=== PATIENT | female | born 1990 | race Caucasian/White ===

== ENCOUNTER 2017-06-03 13:25 | Inpatient (IN) | payer OTHER ==
[~2017-06-03] VITALS: Ht 162.6 cm; Wt 88.4 kg
[2017-06-03 13:53] LABS: BASOPHILS % 0.2 % (0.0-2.0); EOSINOPHILS # 0.1 10^3/ul (0.0-0.5); EOSINOPHILS % 0.5 % (0.0-7.0); HEMATOCRIT 36.4 % (37.0-47.0); HEMOGLOBIN 12.1 g/dl (12.0-16.0); LYMPHOCYTES # 1.6 10^3/ul (0.8-2.9); MEAN CORPUSCULAR HEMOGLOBIN 29.5 pg (29.0-33.0); MEAN CORPUSCULAR HGB CONC 33.2 g/dl (32.0-37.0); MEAN CORPUSCULAR VOLUME 88.8 fl (82.0-101.0); MEAN PLATELET VOLUME 10.6 fl (7.4-10.4); MONOCYTE # 0.8 10^3/ul (0.3-0.9); MONOCYTES % 7.3 % (0.0-11.0); NEUTROPHIL # 8.2 10^3/ul (1.6-7.5); NEUTROPHILS % 76.3 % (39.0-77.0); PLATELET COUNT 241 10^3/UL (140-415); RED CELL DISTRIBUTION WIDTH 13.8 % (11.5-14.5); WHITE BLOOD COUNT 10.8 10^3/ul (4.8-10.8)
[2017-06-03 13:58] VITALS: Ht 162.6 cm; Wt 88.4 kg
[2017-06-03 13:59] VITALS: BP 127/75; PULSE 82
[2017-06-03 14:01] LABS: ADD UMIC YES; UR AMORPHOUS CRYSTAL FEW /HPF (NONE SEEN); UR ASCORBIC ACID NEGATIVE (NEGATIVE); UR BILIRUBIN (Dip) NEGATIVE (NEGATIVE); UR BLOOD (Dip) NEGATIVE (NEGATIVE); UR CLARITY CLOUDY (CLEAR); UR COLOR YELLOW (YELLOW); UR GLUCOSE (Dip) NEGATIVE (NEGATIVE); UR KETONES (Dip) NEGATIVE (NEGATIVE); UR LEUKOCYTE ESTERASE (Dip) NEGATIVE Leu/ul (NEGATIVE); UR MUCUS FEW /HPF (NONE SEEN); UR NITRITE (Dip) NEGATIVE (NEGATIVE); UR RBC 3 /HPF (0-5); UR SPECIFIC GRAVITY (Dip) 1.016 (1.003-1.030); UR SQUAMOUS EPITHELIAL CELL FEW /HPF (FEW); UR TOTAL PROTEIN (Dip) NEGATIVE (NEGATIVE); UR UROBILINOGEN (Dip) NEGATIVE (NEGATIVE)
[2017-06-03] MEDS ORDERED: PRENAT PO (14:01)
[2017-06-03 14:09] LABS: INR 0.91; PROTIME 12.2 Sec (12.2-14.2)
[2017-06-03 14:10] LABS: PARTIAL THROMBOPLASTIN TIME 27.4 Sec (25.0-35.0)
[2017-06-03 14:11] LABS: ALBUMIN 3.4 g/dl (3.3-4.9); ALBUMIN/GLOBULIN RATIO 0.97; BILIRUBIN,INDIRECT 0.1 mg/dl (0-1.1); BILIRUBIN,TOTAL 0.1 mg/dl (0.2-1.3); CALCIUM 9.4 mg/dl (8.4-10.2); CREATININE 0.65 mg/dl (0.44-1.00); POTASSIUM 4.1 mmol/L (3.5-5.1); TOTAL PROTEIN 6.9 g/dl (6.1-8.1); URIC ACID 3.5 mg/dl (3.1-7.9)
--- NOTE | 2017-06-03 14:24 | RADRPT ---
PROCEDURE: US OB biophysical profile. CLINICAL INDICATION: decreased movements, PIH TECHNIQUE: Multiple sonographic images of the pelvis were obtained. The images were reviewed on a PACS workstation. COMPARISON: No prior studies are available for comparison. FINDINGS: There is a single viable intrauterine gestation. Cardiac activity is present with 140 beats per min [place]. There is a vertex presentation. The placenta is anterior. There is no evidence of placental abruption. There is a decreased amount of amniotic fluid with an ASAD = 6.5 cm. Biophysical profile: movement 2/2 tone 2/2. breathing 2/2 ASAD 2/2 Total 04/28 RPTAT: AA . IMPRESSION: Normal biophysical profile. Oligohydramnios. . .Jorgito Banuelos MD, Date Time Electronically viewed and signed by .Jorgito Banuelos MD, MD on 06/03/2017 14:23 .S/
[2017-06-03] MEDS ORDERED: METHYLERGONOVINE 0.2 MG INJ IM PRN (15:00)
[2017-06-03] MEDS ORDERED: LIDOCAINE 1% (MPF) 30 ML INJ INJ PRN (15:00)
[2017-06-03] MEDS ORDERED: LACTATED RINGER'S 1,000 ML IV PRN (15:00)
[2017-06-03] MEDS ORDERED: OXYTOCIN 30 UNITS/LR 500 ML IV SCH ×2 (15:00)
[2017-06-03] MEDS ORDERED: CARBOPROST 250 MCG INJ IM PRN (15:00)
[2017-06-03] MEDS ORDERED: MISOPROSTOL 200 MCG TAB PR PRN (15:00)
[2017-06-03] MEDS ORDERED: BUTORPHANOL 2 MG INJ IV PRN ×2 (15:00)
[2017-06-03] MEDS ORDERED: OXYTOCIN 30 UNITS/LR 500 ML IV PRN (15:00)
[2017-06-03] MEDS ORDERED: AMPICILLIN 2 GM/NS (PMX) 100 ML IV ONE (15:00)
[2017-06-03] MEDS ORDERED: MINERAL OIL LIGHT 10 ML VIAL TOP PRN (15:30)
[2017-06-03] MEDS: LACTATED RINGER'S 1,000 ML IV SCH (15:46)
[2017-06-03] MEDS ORDERED: DINOPROSTONE 10 MG VAG SUPP VAG ONE (17:30)
[2017-06-03] MEDS: AMPICILLIN 1 GM/NS (PMX) 50 ML IV SCH ×2 (19:02→23:02)
--- NOTE | 2017-06-03 19:37 | HP ---
Date/Time of Note Date/Time of Note DATE: 06/03/17 TIME: 19:33 OB - History Hx of Present Free Text/Dictation Admitted for induction of labor at 38 weeks because of decreased amniotic fluid ASAD today was 6.5 cm Patient originally was sent in to rule out -induced hypertension Estimated Due Date: Jun 16, 2017 : 1 Para: 0 Care: Good Care Ultrasounds: Normal mid trimester US Obstetrical Complications: None Medical Complications: None Past Family/Social History * Past Medical, Surgical, Family and Obstetric Histories reviewed from chart. Blood Type: O+ Rubella: immune RPR/VDRL: Negative GBS Status: Positive HBsAG: Negative OB Admission Exam Vital Signs Vital Signs Vital Signs Date Time Temp Pulse Resp B/P Pulse Ox O2 Delivery O2 Flow Rate FiO2 06/03/17 13:59 97.5 82 127/75 Physical Exam HEENT: WNL Heart: Rhythm Normal Lungs: Clear, Equal Abdomen: WNL Extremities: Normal Reflexes: Normal Cervical Dilatation: None Effacement: 0% Station: -3 Membranes: Intact Heart Rate: 130's Accelerations: Accelerations Present Decelerations: No Decelerations Varibility: Marked Contractions on Admission: None Last 72 hours Lab Results CBC & BMP 06/03/17 13:40 Liver Function Test 06/03/17 13:40 Alanine Aminotransferase (ALT/SGPT) 45 Albumin 3.4 Alkaline Phosphatase 167 H Aspartate Amino Transf (AST/SGOT) 24 Direct Bilirubin 0.00 Total Protein 6.9 OB Assessment/Plan Other Assessment: Decreased amniotic fluid at 38 weeks and 1 day Induction Method: per Misoprostol Protocol SHABNAM HARRIS MD Jun 03, 2017 19:37
[2017-06-04] MEDS: LACTATED RINGER'S 1,000 ML IV SCH ×4 (00:11→19:01)
[2017-06-04] MEDS: AMPICILLIN 1 GM/NS (PMX) 50 ML IV SCH ×6 (03:05→22:46)
--- NOTE | 2017-06-04 11:17 | RADRPT ---
PROCEDURE: OB ultrasound for biophysical profile CLINICAL INDICATION: Oligohydramnios. TECHNIQUE: Multiple sonographic images of the pelvis were obtained. Transabdominal view of the gr avid uterus are available for review. The images were reviewed on a PACS workstation. COMPARISON: 06/03/2017. FINDINGS: breathing movement = 2/2 tone = 2/2 motion = 2/2 Quantitative amniotic fluid volume = 2/2 ASAD = 6.5 cm Single live intrauterine with cardiac activity at 138 beats per minute. There is a anterior placenta without previa or abruption. IMPRESSION: 1. Single living intrauterine gestation in cephalic position. 2. Biophysical profile = 8/8. 3. ASAD = 6.5 cm. RPTAT: [facility] Physician Inderjit Date Time Electronically viewed and signed by Physician Inderjit on 06/04/2017 11:16 /
--- NOTE | 2017-06-04 17:24 | PN ---
Date/Time of Note Date/Time of Note DATE: 06/04/17 TIME: 17:23 OB Subjective Subjective Subjective Has minimal complaint of uterine contractions OB Objective Objective Objective Vital signs stable General physical exam is unchanged Cervidil in place OB Assessment/Plan Reason for admission: induction of labor Other Assessment: Term gestation Decreased amniotic fluid Induction Method: per Misoprostol Protocol Other plan: We will reinsert Cervidil if necessary SHABNAM HARRIS MD Jun 04, 2017 17:24
[2017-06-04] MEDS ORDERED: DINOPROSTONE 10 MG VAG SUPP VAG ONE (20:00)
[2017-06-05] MEDS ORDERED: LACTATED RINGER'S 1,000 ML IV ONE (02:38)
[2017-06-05] MEDS ORDERED: FENTAnyl 2MCG/ML-ROPIV 0.2% 100 ML ONE (02:40)
[2017-06-05] MEDS: AMPICILLIN 1 GM/NS (PMX) 50 ML IV SCH ×5 (02:56→18:38)
[2017-06-05] MEDS ORDERED: KETOROLAC 30 MG INJ IV PRN (03:00)
[2017-06-05] MEDS ORDERED: NALBUPHINE HCL (10 MG/1 ML) INJ IV PRN (03:00)
[2017-06-05] MEDS ORDERED: CITRIC ACID/NA CITRATE 30 ML CUP PO ONE (03:00)
[2017-06-05] MEDS ORDERED: TRIMETHOBENZAMIDE 100 MG/ML VIAL IM PRN (03:00)
[2017-06-05] MEDS ORDERED: NALOXONE (0.4 MG/ML) INJ IV PRN (03:00)
[2017-06-05] MEDS ORDERED: morphine 4 MG/ML VIAL IV PRN (03:00)
[2017-06-05] MEDS ORDERED: ONDANSETRON 4 MG INJ IV PRN (03:00)
[2017-06-05] MEDS ORDERED: ONDANSETRON 4 MG INJ IV ONE (03:00)
[2017-06-05] MEDS ORDERED: morphine 2 MG INJ IV PRN (03:00)
[2017-06-05] MEDS ORDERED: DIPHENHYDRAMINE 50 MG INJ IV PRN (03:00)
[2017-06-05] MEDS: LACTATED RINGER'S 1,000 ML IV SCH ×2 (09:38→18:44)
[2017-06-05] MEDS: FENTAnyl 2MCG/ML-ROPIV 0.2% 100 ML BAG EPI SCH ×3 (09:40→19:56)
[2017-06-05] MEDS ORDERED: OXYTOCIN 30 UNITS/LR 500 ML IV SCH (20:00)
--- NOTE | 2017-06-05 20:30 | PN ---
Date/Time of Note Date/Time of Note DATE: 06/05/17 TIME: 20:28 OB Subjective Subjective Subjective has epidural OB Objective Objective Objective cervix is %75/ 2 cm -2 AROM: clear and scant OB Assessment/Plan Reason for admission: induction of labor Other Assessment: term gestation Other plan: augment with pitocin SHABNAM HARRIS MD Jun 05, 2017 20:30
--- NOTE | 2017-06-05 23:21 | LDN ---
Date/Time of Note Date/Time of Note DATE: 06/05/17 TIME: 23:20 Delivery Summary Placenta Delivered: Spontaneously Meconium: none Episiotomy: No Laceration repair: 2nd vag repaired with 2-0 vicryl Anesthesia type: Epidural Sponge & Needle done & correct: Yes All needle counts correct: Yes Any foreign bodies felt in the: No Problems: Delivery Information Sex Sex: female Suctioning Nose & mouth suctioned at alexi: Yes Delee suction performed: Yes Umbilical Cord Umbilical cord with: 3 Vessels Cord presentations: no nuchal cord Cord Blood was obtained: Yes CARSON DALLAS MD Jun 05, 2017 23:21
[2017-06-05] MEDS: OXYTOCIN 30 UNITS/LR 500 ML IV SCH (23:49)
[2017-06-05] MEDS: LACTATED RINGER'S 1,000 ML IV* SCH (23:49)
[2017-06-06] MEDS ORDERED: WITCH HAZEL/GLYCERIN PAD PR PRN
[2017-06-06] MEDS ORDERED: MISOPROSTOL 200 MCG TAB PR PRN
[2017-06-06] MEDS ORDERED: OXYTOCIN 30 UNITS/LR 500 ML IV PRN
[2017-06-06] MEDS ORDERED: METHYLERGONOVINE 0.2 MG INJ IM PRN
[2017-06-06] MEDS ORDERED: BENZOCAINE 20% 56 ML SPRAY TOP PRN
[2017-06-06] MEDS ORDERED: LANOLIN 7 GM TUBE TOP PRN
[2017-06-06] MEDS ORDERED: HYDROCODONE/APAP (5/325) TAB PO PRN
[2017-06-06] MEDS ORDERED: SENNA/DOCUSATE NA (8.6MG/50MG) TAB PO PRN
[2017-06-06] MEDS ORDERED: CARBOPROST 250 MCG INJ IM PRN
[2017-06-06] MEDS ORDERED: ONDANSETRON 4 MG INJ IV PRN
[2017-06-06] MEDS: IBUPROFEN 600 MG TAB PO SCH ×5 (00:19→23:37)
[2017-06-06] MEDS: OXYTOCIN 30 UNITS/LR 500 ML IV SCH (03:49)
[2017-06-06 04:15] VITALS: BP 110/62; PULSE 70; RESP 18
[2017-06-06 07:30] VITALS: BP 112/60; PULSE 66; RESP 18
[2017-06-06] MEDS: LACTATED RINGER'S 1,000 ML IV* SCH ×2 (07:49→23:49)
[2017-06-06 09:25] LABS: BASOPHILS % 0.2 % (0.0-2.0); EOSINOPHILS # 0.1 10^3/ul (0.0-0.5); EOSINOPHILS % 0.5 % (0.0-7.0); HEMATOCRIT 34.9 % (37.0-47.0); HEMOGLOBIN 11.5 g/dl (12.0-16.0); LYMPHOCYTES # 2.3 10^3/ul (0.8-2.9); LYMPHOCYTES % 13.7 % (15.0-51.0); MEAN CORPUSCULAR VOLUME 87.9 fl (82.0-101.0); MEAN PLATELET VOLUME 10.8 fl (7.4-10.4); MONOCYTE # 1.4 10^3/ul (0.3-0.9); MONOCYTES % 8.3 % (0.0-11.0); NEUTROPHIL # 12.7 10^3/ul (1.6-7.5); NEUTROPHILS % 76.6 % (39.0-77.0); PLATELET COUNT 242 10^3/UL (140-415); RED BLOOD COUNT 3.97 10^6/ul (4.20-5.40); RED CELL DISTRIBUTION WIDTH 13.6 % (11.5-14.5); WHITE BLOOD COUNT 16.7 10^3/ul (4.8-10.8)
[2017-06-06] MEDS: SENNA/DOCUSATE NA (8.6MG/50MG) TAB PO SCH ×2 (10:00→21:10)
[2017-06-06] MEDS: PRENATAL VITAMIN PO SCH (10:00)
[2017-06-06 16:00] VITALS: BP 114/61; PULSE 69; RESP 18
--- NOTE | 2017-06-06 18:30 | DS ---
Date/Time of Note Date/Time of Note Home next day DATE: 06/06/17 TIME: 18:29 Obstetrical Discharge Record Final Diagnosis Final Diagnosis: Term delivered Other Final Diagnosis Status post vaginal delivery Vaginal Delivery Obstetrical Delivery: Spontaneous, Laceration, Repaired Complications Augmentation: Yes Induction: Yes Condition on Discharge Physical Assessment Last Vitals: See nurse's notes Voiding: Yes Bowel Movement: Yes Breast: Soft, non-tender, Filling Fundus: Firm Abdomen and Incision: Soft bowel sounds present Episiotomy: Perineum is healing well Calf Tenderness: No Patient Condition: Good SHABNAM HARRIS MD Jun 06, 2017 18:30
--- NOTE | 2017-06-06 18:31 | PD.PPDC ---
[employer] Discharge Instruction Provider Information Physician Information 26-year-old female had vaginal delivery Diagnosis Final Diagnosis: Status post vaginal delivery Condition Patient Condition: Good Diet Diet: Resume Regular Diet Activity/Restrictions Activity: Normal Activity May Shower Restrictions: Nothing in the Vagina Return to Work or School: Jul 20, 2017 Follow-up Follow-up with Physician: 4, Week/Weeks Return to clinic for OB Instructions: Breast Tenderness Depression Comment: Pelvic rest 6 weeks SHABNAM HARRIS MD Jun 06, 2017 18:31
[2017-06-06] MEDS ORDERED: IBUP-1542 PO (18:33)
[2017-06-06] MEDS: CEPHALEXIN 500 MG CAP PO SCH ×2 (18:37→23:37)
[2017-06-06 20:00] VITALS: BP 125/73; PULSE 72; RESP 20
[2017-06-07 04:00] VITALS: BP 117/73; PULSE 68; RESP 20
[2017-06-07] MEDS: IBUPROFEN 600 MG TAB PO SCH ×3 (06:52→17:21)
[2017-06-07] MEDS: CEPHALEXIN 500 MG CAP PO SCH ×3 (06:52→17:21)
[2017-06-07] MEDS: LACTATED RINGER'S 1,000 ML IV* SCH (07:49)
[2017-06-07 07:50] VITALS: BP 118/78; PULSE 67; RESP 18
[2017-06-07] MEDS: PRENATAL VITAMIN PO SCH (09:09)
[2017-06-07] MEDS: SENNA/DOCUSATE NA (8.6MG/50MG) TAB PO SCH (09:09)
[2017-06-07 09:34] LABS: BASOPHILS % 0.3 % (0.0-2.0); EOSINOPHILS # 0.2 10^3/ul (0.0-0.5); EOSINOPHILS % 2.2 % (0.0-7.0); HEMATOCRIT 30.9 % (37.0-47.0); HEMOGLOBIN 10.4 g/dl (12.0-16.0); LYMPHOCYTES # 2.4 10^3/ul (0.8-2.9); LYMPHOCYTES % 24.3 % (15.0-51.0); MEAN CORPUSCULAR HEMOGLOBIN 29.7 pg (29.0-33.0); MEAN CORPUSCULAR HGB CONC 33.7 g/dl (32.0-37.0); MEAN CORPUSCULAR VOLUME 88.3 fl (82.0-101.0); MONOCYTE # 0.9 10^3/ul (0.3-0.9); MONOCYTES % 9.5 % (0.0-11.0); NEUTROPHIL # 6.2 10^3/ul (1.6-7.5); NEUTROPHILS % 62.8 % (39.0-77.0); PLATELET COUNT 208 10^3/UL (140-415); RED CELL DISTRIBUTION WIDTH 13.8 % (11.5-14.5); WHITE BLOOD COUNT 9.9 10^3/ul (4.8-10.8)
[2017-06-07 16:10] VITALS: BP 117/67; PULSE 64; RESP 18
== END 2017-06-07 20:05 | disposition home or self-care (01) | DRG 775 ==
LOC: L-D 13:25 → OBT 13:25 → L-D 14:50 → OBT 14:54 → PP1 06-05 23:33
PROVIDERS: ADMIT Obstetrics & Gynecology; ATTEND Obstetrics & Gynecology
PROC: 10E0XZZ Delivery of Products of Conception, External Approach (ICD-10-PCS; principal; 2017-06-05)
PROC: 0KQM0ZZ Repair Perineum Muscle, Open Approach (ICD-10-PCS; 2017-06-05)
PROC: 3E033VJ Introduction of Other Hormone into Peripheral Vein, Percutaneous Approach (ICD-10-PCS; 2017-06-05)
PROC: 3E0P7GC Introduction of Other Therapeutic Substance into Female Reproductive, Via Natural or Artificial Opening (ICD-10-PCS; 2017-06-05)
DX: O41.03X0 Oligohydramnios, third trimester, not applicable or unspecified (principal); O70.1 Second degree perineal laceration during delivery; Z37.0 Single live birth; Z3A.38 38 weeks gestation of pregnancy
CPT/HCPCS: 62319; 76818; 80053; 81001; 84560; 85025; 85384; 85610; 85730; 86592; 86900; 86901; 87340; G0463; J0290; J2210; J2405; J2590; J3010; J7120